=== PATIENT | female | born 1955 | race Caucasian/White ===

== ENCOUNTER 2018-08-22 08:50 | Day surgery (SDC) | payer OTHER ==
[~2018-08-22] VITALS: Ht 167.6 cm; Wt 96.1 kg
[~2018-08-22 08:50] MED LIST: DULO60; FISH OIL + D31 EACH; LEVSOD150; LO-DOSE ASPIRIN81 MG
[2018-08-22] MEDS ORDERED: BUPR75 (09:49)
== END 2018-08-22 11:14 | disposition home or self-care (01) ==
LOC: ORSCSDS 08:50
PROVIDERS: Internal Medicine Gastroenterology
PROC: 0DBH8ZX Excision of Cecum, Via Natural or Artificial Opening Endoscopic, Diagnostic (ICD-10-PCS; principal; 2018-08-22 10:15)
DX: Z12.11 Encounter for screening for malignant neoplasm of colon (principal); K63.5 Polyp of colon; K64.8 Other hemorrhoids; K57.30 Diverticulosis of large intestine without perforation or abscess without bleeding; E03.9 Hypothyroidism, unspecified; E78.5 Hyperlipidemia, unspecified; I10 Essential (primary) hypertension; F32.9 Major depressive disorder, single episode, unspecified; Z79.82 Long term (current) use of aspirin; Z79.899 Other long term (current) drug therapy
CPT/HCPCS: 88305; J2704; J7120

== ENCOUNTER 2022-10-08 10:28 | Day surgery (SDC) | payer OTHER ==
[~2022-10-08] VITALS: Ht 170.2 cm; Wt 98.1 kg
[~2022-10-08 10:28] MED LIST changes: +BUPR75
[2022-10-08 15:06] VITALS: BP 127/77
--- NOTE | 2022-10-08 15:57 | NUR ---
10/08/22 1557 Mike Matthew IV REMOVED INTACT. SITE WNL. PT REPORTED 5/10 PAIN UPON DISCHARGE BUT DESCRIBED PAIN TOLERABLE. PT DENIED NAUSEA.
== END 2022-10-08 15:45 | disposition home or self-care (01) ==
LOC: ORSCSDS 10:28
PROVIDERS: Podiatrist Foot & Ankle Surgery
PROC: 0SGJ04Z Fusion of Left Tarsal Joint with Internal Fixation Device, Open Approach (ICD-10-PCS; principal; 2022-10-08 12:30)
PROC: 0SGN04Z Fusion of Left Metatarsal-Phalangeal Joint with Internal Fixation Device, Open Approach (ICD-10-PCS; principal; 2022-10-08 12:30)
DX: M21.612 Bunion of left foot (principal); M19.072 Primary osteoarthritis, left ankle and foot; E03.9 Hypothyroidism, unspecified; I10 Essential (primary) hypertension; E78.00 Pure hypercholesterolemia, unspecified; Z79.899 Other long term (current) drug therapy
CPT/HCPCS: A9270; C1713; J0171; J0690; J2704; J2795; J3010; J7120

== ENCOUNTER 2023-05-24 07:12 | Day surgery (SDC) | payer OTHER ==
[~2023-05-24] VITALS: Ht 170.2 cm; Wt 88.6 kg
[~2023-05-24 07:12] MED LIST changes: +Aspir 8181 MG PO; -BUPR75; +BUPR75 PO; -DULO60; +DULO60 PO; +LEVOTHYROXINE150 MC9 PO; -LEVSOD150
--- NOTE | 2023-05-24 08:45 | NUR ---
05/24/23 0845 Iliana Burton ROPIVACAINE 0.5% 30 MLS MIXED & VERIFIED WITH EPI 0.15ML (1MG/ML), PER ORDER, TO MAKE ROPIVACAINE 0.5% 1:200,000 FOR INJECTION AT OPSITE BY DR PAREKH.
[2023-05-24 10:46] VITALS: BP 143/77
== END 2023-05-24 11:13 | disposition home or self-care (01) ==
LOC: ORSCSDS 07:12
PROVIDERS: Podiatrist Foot & Ankle Surgery
PROC: 0SGK04Z Fusion of Right Tarsometatarsal Joint with Internal Fixation Device, Open Approach (ICD-10-PCS; principal; 2023-05-24 08:30)
PROC: 0QSN04Z Reposition Right Metatarsal with Internal Fixation Device, Open Approach (ICD-10-PCS; principal; 2023-05-24 08:30)
DX: M21.611 Bunion of right foot (principal); E03.9 Hypothyroidism, unspecified; Z79.899 Other long term (current) drug therapy
CPT/HCPCS: A9270; C1713; J0171; J0690; J1100; J2250; J2371; J2405; J2704; J2795; J3010; J7120

== ENCOUNTER → 2024-05-25 | Outpatient (CLI) | payer OTHER ==
[~2024-05-25] MED LIST changes: +BUPR100ER PO; +VENL150ER PO
[2024-05-25 11:58] LABS: BASOPHILS ABSOLUTE AUTO 0.02 K/mm3 (0.00-0.23); BASOPHILS PERCENT AUTO 0 % (0-2); EOSINOPHILS PERCENT AUTO 0 % (0-6); Hematocrit 39.8 % (33.0-51.0); Hemoglobin 13.8 g/dL (11.5-16.0); IMMATURE GRAN ABSOLUTE AUTO 0.05 K/mm3 (0.00-0.10); IMMATURE GRAN PERCENT AUTO 1 % (0-1); LYMPHOCYTES ABSOLUTE AUTO 0.87 K/mm3 (0.84-5.20); LYMPHOCYTES PERCENT AUTO 10 % (21-46); MONOCYTES ABSOLUTE AUTO 0.33 K/mm3 (0.16-1.47); MONOCYTES PERCENT AUTO 4 % (4-13); Mean Corpuscular HGB 30.5 pg (26.0-34.0); Mean Corpuscular HGB Conc 34.7 g/dL (31.5-36.5); Mean Corpuscular Volume 88 fL (80-100); Mean Platelet Volume 9.1 fL (9.1-12.4); NEUTROPHILS ABSOLUTE AUTO 7.16 K/mm3 (1.96-9.15); NEUTROPHILS PERCENT AUTO 85 % (41-73); Platelet Count 180 K/mm3 (150-400); RDW Coefficient Variation 12.9 % (11.7-14.2); RDW Standard Deviation 41.7 fL (35.1-46.3); Red Blood Cell Count 4.52 M/mm3 (3.80-5.20); White Blood Cell Count 8.43 K/mm3 (4.00-11.30)
[2024-05-25 12:18] LABS: Albumin, Blood 3.2 g/dL (3.4-5.0); Albumin/Globulin Ratio 0.7 (0.8-1.8); Bilirubin, Total 0.5 mg/dL (0.1-1.0); Bun/Creatinine Ratio 13.6 (12.0-20.0); Calcium, Blood 9.2 mg/dL (8.5-10.1); Creatinine, Blood 1.1 mg/dL (0.40-1.00); Globulin, Blood 4.3 g/dL (2.2-4.0); Potassium, Blood 3.8 mmol/L (3.5-5.5); Thyroid Stimulating Hormone 2.861 uIU/mL (0.360-4.800); Total Protein, Blood 7.5 g/dL (6.4-8.2)
== END ==
LOC: LAB SHORT 11:54 → LAB 11:54
PROVIDERS: Family Medicine
DX: E03.9 Hypothyroidism, unspecified (principal); R46.89 Other symptoms and signs involving appearance and behavior; N39.0 Urinary tract infection, site not specified
CPT/HCPCS: 80053; 84443; 85025; 87086

== ENCOUNTER 2024-05-27 14:55 | Inpatient (IN) | payer OTHER ==
[~2024-05-27] VITALS: Ht 170.2 cm; Wt 92.5 kg
[~2024-05-27 14:55] MED LIST changes: -BUPR100ER PO; -VENL150ER PO
--- NOTE | 2024-05-27 15:19 | NUR ---
Pt. is in ED8 and getting attended to when she welcomes my visit. Pt. displays evidence of feeling quite week and ill and verbalizes that she has not been steady on her feet, which is unusual for her. Pt. had friends at bedside. Pt. verbalized gratitude for the spiritual care visit. This frontend engineer will return after the Pt. gets settled.
[2024-05-27] MEDS ORDERED: NS 1,000 ML IV SCH (15:20)
[2024-05-27 15:35] LABS: BASOPHILS ABSOLUTE AUTO 0.03 K/mm3 (0.00-0.23); BASOPHILS PERCENT AUTO 0 % (0-2); EOSINOPHILS PERCENT AUTO 0 % (0-6); Hematocrit 37.4 % (33.0-51.0); Hemoglobin 13.2 g/dL (11.5-16.0); IMMATURE GRAN ABSOLUTE AUTO 0.09 K/mm3 (0.00-0.10); IMMATURE GRAN PERCENT AUTO 1 % (0-1); LYMPHOCYTES ABSOLUTE AUTO 0.82 K/mm3 (0.84-5.20); LYMPHOCYTES PERCENT AUTO 10 % (21-46); MONOCYTES ABSOLUTE AUTO 0.67 K/mm3 (0.16-1.47); MONOCYTES PERCENT AUTO 8 % (4-13); Mean Corpuscular HGB 31.3 pg (26.0-34.0); Mean Corpuscular HGB Conc 35.3 g/dL (31.5-36.5); Mean Corpuscular Volume 89 fL (80-100); Mean Platelet Volume 9.6 fL (9.1-12.4); NEUTROPHILS PERCENT AUTO 81 % (41-73); Platelet Count 224 K/mm3 (150-400); RDW Coefficient Variation 13.2 % (11.7-14.2); Red Blood Cell Count 4.22 M/mm3 (3.80-5.20); White Blood Cell Count 8.31 K/mm3 (4.00-11.30)
[2024-05-27] MEDS ORDERED: CefTRIAXone Sodium 1,000 MG in NS 50 ML IV ONE (15:45)
[2024-05-27 15:52] LABS: Albumin, Blood 2.7 g/dL (3.4-5.0); Albumin/Globulin Ratio 0.6 (0.8-1.8); Bilirubin, Total 0.7 mg/dL (0.1-1.0); Bun/Creatinine Ratio 11.1 (12.0-20.0); Calcium, Blood 8.6 mg/dL (8.5-10.1); Creatinine, Blood 0.9 mg/dL (0.40-1.00); Globulin, Blood 4.2 g/dL (2.2-4.0); Potassium, Blood 3.6 mmol/L (3.5-5.5); Total Protein, Blood 6.9 g/dL (6.4-8.2)
[2024-05-27 16:28] LABS: Source, Urine Straight Cath
[2024-05-27 16:32] LABS: Blood, Urine 4+ (Neg); Glucose Qualitative, Urine Neg (Neg); Ketones, Urine 3+ (Neg); Leukocyte Esterase, Urine 1+ (Neg); Nitrite, Urine Neg (Neg); Protein, Urine 4+ (Neg); Urobilinogen, Urine 1+ (Normal)
[2024-05-27 16:45] LABS: Bilirubin, Urine 1+ (Neg)
[2024-05-27 16:46] LABS: Granular Casts 0-2 /lpf (0)
[2024-05-27 16:47] LABS: Amorphous Light (0-Heavy); Bacteria Few /hpf; Mucus Light (0-Heavy); Renal Epithelial Rare /hpf (0-Rare); Squamous Epithelial Cells Not Seen /hpf (Few)
[2024-05-27 16:48] LABS: Appearance, Urine Cloudy (Clear); Color, Urine Amber (P-Yellow)
--- NOTE | 2024-05-27 17:27 | NUR ---
Spiritual Care follow up. Pt. is in room. A friend is at bedside. Facilitated an update but Pt. presented to be weak and lethargic. Pt. verbalized an expectation that she would be staying overnight for one night. Considered matters of joe and ministry as this Pt. is known ot this chinese instructor from the community. Pt. requested that I update her anabaptism of her condition. Prayed with the Pt. Will remain available and will check on the Pt. in morning. Contacted the anabaptism spiritual care team.
[2024-05-27 18:17] LABS: CORONAVIRUS COVID-19 AG Negative (NEGATIVE); INFLUENZA A AG Negative (NEGATIVE); INFLUENZA B AG Negative (NEGATIVE)
[2024-05-27] MEDS ORDERED: FLU VACC TS2024-25(6MOS UP)/PF 45 MCG/0.5 ML SYRINGE IM SCH (19:40)
[2024-05-27] MEDS ORDERED: Azithromycin 250 MG Tab PO ONE (19:45)
[2024-05-27] MEDS ORDERED: Azithromycin 200 MG/5 ML SUSP 5ML UDC PO ONE (20:00)
[2024-05-27] MEDS ORDERED: VENL150ER PO (20:59)
[2024-05-27] MEDS ORDERED: BUPR100ER PO (20:59)
[2024-05-27] MEDS ORDERED: Lactobacil 2-S.Thermo-Bifido 1 1 Cap PO SCH (21:00)
[2024-05-27] MEDS ORDERED: Acetaminophen 500 MG Tab PO PRN (21:50)
[2024-05-27 22:20] VITALS: BP 130/73
[2024-05-28] MEDS ORDERED: Levothyroxine Sodium 0.15 MG Tab PO SCH (06:00)
[2024-05-28 06:06] VITALS: BP 120/64
[2024-05-28 06:38] LABS: BASOPHILS ABSOLUTE AUTO 0.01 K/mm3 (0.00-0.23); BASOPHILS PERCENT AUTO 0 % (0-2); EOSINOPHILS PERCENT AUTO 0 % (0-6); Hematocrit 36.8 % (33.0-51.0); Hemoglobin 12.9 g/dL (11.5-16.0); Mean Corpuscular HGB 31.1 pg (26.0-34.0); Mean Corpuscular HGB Conc 35.1 g/dL (31.5-36.5); Mean Corpuscular Volume 89 fL (80-100); Mean Platelet Volume 9.7 fL (9.1-12.4); Platelet Count 210 K/mm3 (150-400); RDW Coefficient Variation 13.4 % (11.7-14.2); RDW Standard Deviation 43.8 fL (35.1-46.3); Red Blood Cell Count 4.15 M/mm3 (3.80-5.20); White Blood Cell Count 8.96 K/mm3 (4.00-11.30)
[2024-05-28 06:39] LABS: IMMATURE GRAN ABSOLUTE AUTO 0.09 K/mm3 (0.00-0.10); IMMATURE GRAN PERCENT AUTO 1 % (0-1); LYMPHOCYTES ABSOLUTE AUTO 0.97 K/mm3 (0.84-5.20); LYMPHOCYTES PERCENT AUTO 11 % (21-46); MONOCYTES ABSOLUTE AUTO 0.75 K/mm3 (0.16-1.47); MONOCYTES PERCENT AUTO 8 % (4-13); NEUTROPHILS ABSOLUTE AUTO 7.14 K/mm3 (1.96-9.15); NEUTROPHILS PERCENT AUTO 80 % (41-73)
--- NOTE | 2024-05-28 07:00 | NUR ---
ADMITTED FROM ER ACCOMPANIED BY STAFF. MILLER ASSIST WITH SLIDER TO BED. PT IS LETHARGIC BUT RESPONDS TO QUESTIONS WITH STRONG ENCOURAGEMENT BEFORE SHE FALLS ASLEEP. ORIENTED X3. ATTEMPTED BSC, MILLER ASSSIST X2 WITH VERBAL QUES. FEBRILE, 500MG TYLENOL GIVEN PER MAR X2. #18 SHWETHA, REVA.
[2024-05-28 07:03] LABS: Albumin, Blood 2.4 g/dL (3.4-5.0); Albumin/Globulin Ratio 0.6 (0.8-1.8); Bilirubin, Total 0.5 mg/dL (0.1-1.0); Bun/Creatinine Ratio 13.7 (12.0-20.0); Calcium, Blood 8.2 mg/dL (8.5-10.1); Creatinine, Blood 0.8 mg/dL (0.40-1.00); Globulin, Blood 4.3 g/dL (2.2-4.0); Phosphorus, Blood 1.7 mg/dL (2.5-4.9); Potassium, Blood 3.6 mmol/L (3.5-5.5); Total Protein, Blood 6.7 g/dL (6.4-8.2)
[2024-05-28 08:42] VITALS: BP 91/57
[2024-05-28] MEDS ORDERED: Venlafaxine HCl 75 MG CapCR PO SCH (09:00)
[2024-05-28] MEDS ORDERED: Enoxaparin 40 MG/0.4 ML SYR SC SCH (09:00)
[2024-05-28] MEDS ORDERED: BuPROPion HCl 100 MG Tab PO SCH (09:00)
--- NOTE | 2024-05-28 11:31 | NUR ---
Pt. is awake in bed when she welcomes my visit. Pt. displays evidence of being tired, but the Pt. verbalized that she did not sleep much since [place] prior to her admission to the hospital. The Pt. is known to this office support from the community. 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 Pt. displayed evidence of being engaged and aware. Prayed for the Pt. pt. verblaized gratitude for the spiritual care visit. Will remain available to the Pt.
[2024-05-28 16:06] VITALS: BP 123/69
--- NOTE | 2024-05-28 17:10 | NUR ---
PATIENT A/O X4. PATIENT IS ABLE TO MOVE SELF IN BED HOWEVER IS WEAK, PATIENT HAS HAD FAMILY AND FRIEND IN AND OUT OF ROOM TODAY AND PATIENT IS TIRED FROM VISITATIONS. PATIENT WAS GIVEN TYLENOL FOR FEVER OF 100.6. PATIENT HAS A NON PRODUCUCTIVE COUGH AND HAS REQUIRED NO OXYGEN. PATIENT HAS NOT HAD ACUTE CHANGES THIS SHIFT AND HAS CALL LIGHT NEXT TO PATIENT. PATIENT HAS NOT GOT OUT OF BED AND WAS UNABLE TO BE EVALUATED BY PHYSICAL THERAPY DUE TO PATIENT BEING TO TIRED AND REQUEST FOR TOMORROW. PATIENT ABLE TO CALL FOR ANY ASSITANCE NEEDED. PATIENT DISHCARGE PLAN INCLUDE GOING HOME WITH FRIENDS ONCE MEDICALLY STABE.
--- NOTE | 2024-05-28 17:14 | NUR ---
SPiritual Care Follow Up Pt. is awake in bed with several visitors. Pt. displays evidence of being more exhausted than my earlier visit. Facilitated some updates regarding her day, and spent time helping mediate the conversation. Prayed with the pt. and hte group. One of the visitors (Jenifer) is listed as the Pts. decision maker. Met with the visitor group in the hallway after the visit, and then circled make ot the Pts. attending nurse Sheela to update her. This authorization nurse will return in the morning.
[2024-05-28] MEDS ORDERED: Azithromycin 250 MG Tab PO SCH (18:00)
[2024-05-28] MEDS ORDERED: CefTRIAXone Sodium 1,000 MG in NS 100 ML IV SCH (18:00)
[2024-05-28 20:27] VITALS: BP 114/61
[2024-05-29 02:43] VITALS: BP 118/71
[2024-05-29 07:50] VITALS: BP 111/65
--- NOTE | 2024-05-29 12:29 | NUR ---
1200, THIS RN PLACED PURE WICK CATHETER IN POSITION FOR PT. PT IS ABLE TO STAND WITH YARN COMBER. WHEN QUESTIONED, REPLIED THEY WERE WORRIED ABOUT POTENTIAL SKIN BREAKDOWN DUE TO INCONTINENCE. THIS RN HAS NOT OBSERVED ANY SKIN BREAKDOWN CURRENTLY. PT WAS REMINDED WHEN SHE HAS THE URGE TO URINATE, TO PRESS CALL LIGHT FOR RN AND INTERNAL CONTROLS SPECIALIST TO ASSIST TO THE COMMODE TO PREVENT MUSCLE ATROPHY. WILL CONTINUE TO ASSESS.
[2024-05-29 16:25] VITALS: BP 104/68
--- NOTE | 2024-05-29 16:58 | NUR ---
SHIFT SUMMARY PT AOX3/4, COOPERATIVE, ABLE TO MAKE NEEDS KNOWN. SPEND MOST OF SHIFT IN BED SLEEPING, VERY TIRED. DID WORK WITH BOX SEALING INSPECTOR TODAY. MD SAW PT AND PER MD REQUEST, PURE WICK CATHETER IN PLACE. PT ASKED TO USE COMMODE, MANAGER MORTGAGE AND RN ASSISTED PT TO COMMODE, SHE DID WELL TRANSFERRING. WHEN MANAGER MORTGAGE TRANSFERRED PT BACK TO BED, PT REQUESTED THE PURE WICK NOT BE PLACED, MD INFORMED. BED IN LOWEST POSITION, CALL LIGHT WITHIN REACH.
--- NOTE | 2024-05-29 17:23 | NUR ---
Pt. is awake in bed when this leather production worker visited after the Pt. had gotten her vitals checked by the CARPORT ERECTOR. Pt. displays evidenc of weakness, but also displays evidence of improvement from the previous day. Facilitated some dialogue about her daughter and friends. Pt. displayed evidence of engagement and awareness. Prayed with the Pt. Pt. verbalized gratitude for the spiritual care visit.
[2024-05-29 21:08] VITALS: BP 105/69
[2024-05-30 02:03] VITALS: BP 101/69
--- NOTE | 2024-05-30 04:01 | NUR ---
AAOX3, SLOW TO RESPOND TO QUESTIONS OR MOVEMENT. RA. USES BSC WITH WALKER. RECIEVING ROCEHIN FOR BILATERAL LL PNU. WORKING WITH PT FOR STRENGTHENING. PLAN IS DC HOME WHEN STRONGER.
[2024-05-30 06:27] LABS: Albumin, Blood 2.1 g/dL (3.4-5.0); Anion Gap 10 mmol/L (3-11); Blood Urea Nitrogen 11 mg/dL (8-24); Bun/Creatinine Ratio 19.3 (12.0-20.0); CO2, Blood 24 mmol/L (21-32); Calcium, Blood 8.2 mg/dL (8.5-10.1); Chloride, Blood 101 mmol/L (98-108); Creatinine, Blood 0.57 mg/dL (0.40-1.00); Glomerular Filtration Rate 97 (60-); Glucose, Blood 98 mg/dL (70-99); Phosphorus, Blood 2.3 mg/dL (2.5-4.9); Potassium, Blood 3.4 mmol/L (3.5-5.5); Sodium, Blood 132 mmol/L (136-145)
[2024-05-30 06:35] LABS: Hematocrit 34.4 % (33.0-51.0); Hemoglobin 11.8 g/dL (11.5-16.0); Mean Corpuscular HGB 30.4 pg (26.0-34.0); Mean Corpuscular HGB Conc 34.3 g/dL (31.5-36.5); Mean Corpuscular Volume 89 fL (80-100); Mean Platelet Volume 10.3 fL (9.1-12.4); Platelet Count 297 K/mm3 (150-400); RDW Coefficient Variation 13.9 % (11.7-14.2); RDW Standard Deviation 44.9 fL (35.1-46.3); Red Blood Cell Count 3.88 M/mm3 (3.80-5.20); White Blood Cell Count 10.62 K/mm3 (4.00-11.30)
[2024-05-30] MEDS ORDERED: Potassium Phosphate Dibasic 20 MM in Dextrose 5% 500 ML IV STA (07:08)
[2024-05-30 07:41] VITALS: BP 101/59
[2024-05-30 08:17] LABS: BAND PERCENT MAN 2 % (0-8); BASOPHILS PERCENT MAN 0 % (0-2); EOSINOPHILS PERCENT MAN 0 % (0-6); LYMPHOCYTES % ATYPICAL MANUAL 10 % (0-0); LYMPHOCYTES PERCENT MAN 23 % (21-46); MONOCYTES ABSOLUTE MAN 0.53 K/mm3 (0.16-1.47); MONOCYTES PERCENT MAN 5 % (4-13); NEUTROPHILS ABSOLUTE MAN 6.58 K/mm3 (1.96-9.15); SEG NEUTROPHILS PERCENT MAN 60 % (41-73); TOTAL CELLS COUNTED 100
[2024-05-30] MEDS ORDERED: NS 250 ML IV PRN (14:30)
[2024-05-30 14:44] VITALS: BP 102/55
--- NOTE | 2024-05-30 16:26 | NUR ---
SHIFT SUMMARY MS GARCIA IS MORE AWAKE THIS AFTERNOON WITH VISITORS AT HER BEDSIDE. SHE WAS VERY SLEEPY THIS MORNING, AROUSABLE. SHE IS SOMETIMES SLOW TO SPEAK, BUT HAS BEEN APPROPRIATE IN HER CONVERSATION AND ANSWERS TO QUESTIONS. THIS AFTERNOON SHE SAT UP AND ATE LUNCH, CONVERSING WITH VISITORS. SHE HAS DECLINED TO BRUSH HER TEETH OR GET UP TO THE CHAIR, BUT HAS BEEN UP TO THE BEDSIDE COMMODE WITH 1 PERSON ASSISTANCE. A NEW PIV THAT WAS PLACED THIS MORNING ON HER RFA INFILTRATED. SHE HAD ICE PACKS TO HER RIGHT ARM, SWELLING AND TENDERNESS HAS DECREASED, AREA IS SOFT TO THE TOUCH. WITH PT PERMISSION I SPOKE TO HER DAUGHTER EMILIA ON THE TELEPHONE. EMILIA SAID SHE LIVES IN [place] SO WILL NOT BE HERE, BUT THAT ONE OF THE VISITORS WHO WERE HERE TODAY MAY STAY WITH HER FOR A WHILE UPON DISCHARGE. PT ABLE TO TURN IN BED INDEPENDENTLY, NEEDING ASSISTANCE TO MOVE UP IN THE BED. BED LOW, CALL LIGHT IN REACH, BED ALARM ON.
[2024-05-30 20:43] VITALS: BP 104/55
[2024-05-31 03:50] VITALS: BP 110/71
[2024-05-31 05:13] LABS: Hemoglobin 11.9 g/dL (11.5-16.0); Mean Corpuscular HGB 30.7 pg (26.0-34.0); Mean Corpuscular Volume 88 fL (80-100); Mean Platelet Volume 9.3 fL (9.1-12.4); Platelet Count 371 K/mm3 (150-400); RDW Coefficient Variation 13.9 % (11.7-14.2); RDW Standard Deviation 44.7 fL (35.1-46.3); Red Blood Cell Count 3.88 M/mm3 (3.80-5.20); White Blood Cell Count 11.75 K/mm3 (4.00-11.30)
[2024-05-31 05:52] LABS: Albumin, Blood 2.1 g/dL (3.4-5.0); Anion Gap 10 mmol/L (3-11); Blood Urea Nitrogen 10 mg/dL (8-24); Bun/Creatinine Ratio 17.4 (12.0-20.0); CO2, Blood 24 mmol/L (21-32); Calcium, Blood 8.3 mg/dL (8.5-10.1); Chloride, Blood 103 mmol/L (98-108); Creatinine, Blood 0.58 mg/dL (0.40-1.00); Glomerular Filtration Rate 97 (60-); Glucose, Blood 116 mg/dL (70-99); Phosphorus, Blood 2.7 mg/dL (2.5-4.9); Potassium, Blood 3.5 mmol/L (3.5-5.5); Sodium, Blood 133 mmol/L (136-145)
[2024-05-31 06:03] LABS: BAND PERCENT MAN 1 % (0-8); BASOPHILS ABSOLUTE MAN 0.11 K/mm3 (0.00-0.23); BASOPHILS PERCENT MAN 1 % (0-2); EOSINOPHILS PERCENT MAN 0 % (0-6); LYMPHOCYTES % ATYPICAL MANUAL 7 % (0-0); LYMPHOCYTES ABSOLUTE MAN 3.99 K/mm3 (0.84-5.20); LYMPHOCYTES PERCENT MAN 27 % (21-46); MONOCYTES PERCENT MAN 6 % (4-13); NEUTROPHILS ABSOLUTE MAN 6.93 K/mm3 (1.96-9.15); SEG NEUTROPHILS PERCENT MAN 58 % (41-73); TOTAL CELLS COUNTED 100
--- NOTE | 2024-05-31 06:14 | NUR ---
SHIFT SUMMARY AT START OF SHIFT, PT SITTING UP IN BED, WATCHING TV. VITALS STABLE. AFTER 2100 MEDS PASSED, PT TURNED OFF TV AND LIGHT, AND WENT TO SLEEP. WILL CONTINUE TO MONITOR. 0410, PT UP TO COMMODE, VOIDED VERY LITTLE. BACK INTO BED AND RESTING. WILL CONTINUE TO MONITOR. PT CONTINUING TO SLEEP SOUNDLY.
[2024-05-31 07:29] VITALS: BP 116/75
[2024-05-31] MEDS ORDERED: Potassium Phosphate Dibasic 10 MM in Dextrose 5% 250 ML IV STA (12:44)
[2024-05-31 15:00] VITALS: BP 115/68
--- NOTE | 2024-05-31 16:03 | NUR ---
Shift Summary Ms Rogers is orientated, no confusion evident. She has a delay in verbal response and physical reaction, but all are appropriate. She was on 2L n/c oxygen at time of report this morning, Since then oxygen has been removed and she is saturating low 90s on room air with no c/o SOB. She has used the incentive spirometer with moderate technique. She has ambulated in the halls with gait belt, walker and verbal prompting/stand by assistance. She has sat up in the chair for meals. She does activity with prompting and encouragement. She has had several visitors today. Bed low, call light in reach.
[2024-05-31 19:46] VITALS: BP 119/72
--- NOTE | 2024-06-01 04:50 | NUR ---
SHIFT SUMMARY PATIENT IS ALERT AND ORIENTED BUT SLOW TO RESPOND. PATIENT HAS HAD NO ACUTE EVENTS THIS SHIFT. VITAL SIGNS REVIEWED. PATIENT IS PLEASENT AND COOPERATIVE WITH CARE. PATIENT HAS BEEN ON ROOM AIR SATTING MID 90S. PATIENT HAS BEEN RESTING MOST OF NIGHT. PATIENT HAS HAD NO COMPLAINTS OF PAIN, NAUSEA, SOB OR VOMITTING. BED IN LOCKED AND LOWEST POSITION. CALL LIGHT IN PLACE. WILL MONITOR UNTIL SHIFT CHANGE.
[2024-06-01 05:42] VITALS: BP 102/72
[2024-06-01 06:24] LABS: BASOPHILS ABSOLUTE AUTO 0.06 K/mm3 (0.00-0.23); BASOPHILS PERCENT AUTO 0 % (0-2); EOSINOPHILS PERCENT AUTO 2 % (0-6); Hematocrit 35.1 % (33.0-51.0); Hemoglobin 12.3 g/dL (11.5-16.0); IMMATURE GRAN ABSOLUTE AUTO 0.21 K/mm3 (0.00-0.10); IMMATURE GRAN PERCENT AUTO 2 % (0-1); LYMPHOCYTES ABSOLUTE AUTO 6.05 K/mm3 (0.84-5.20); LYMPHOCYTES PERCENT AUTO 45 % (21-46); MONOCYTES ABSOLUTE AUTO 0.88 K/mm3 (0.16-1.47); MONOCYTES PERCENT AUTO 7 % (4-13); Mean Corpuscular HGB 31.1 pg (26.0-34.0); Mean Corpuscular Volume 89 fL (80-100); NEUTROPHILS ABSOLUTE AUTO 6.09 K/mm3 (1.96-9.15); NEUTROPHILS PERCENT AUTO 45 % (41-73); Platelet Count 434 K/mm3 (150-400); Red Blood Cell Count 3.96 M/mm3 (3.80-5.20); White Blood Cell Count 13.49 K/mm3 (4.00-11.30)
[2024-06-01 06:46] LABS: Albumin, Blood 2.2 g/dL (3.4-5.0); Anion Gap 9 mmol/L (3-11); Blood Urea Nitrogen 10 mg/dL (8-24); Bun/Creatinine Ratio 15.9 (12.0-20.0); CO2, Blood 26 mmol/L (21-32); Calcium, Blood 8.6 mg/dL (8.5-10.1); Chloride, Blood 105 mmol/L (98-108); Creatinine, Blood 0.63 mg/dL (0.40-1.00); Glomerular Filtration Rate 95 (60-); Glucose, Blood 103 mg/dL (70-99); Phosphorus, Blood 2.9 mg/dL (2.5-4.9); Potassium, Blood 3.8 mmol/L (3.5-5.5); Sodium, Blood 136 mmol/L (136-145)
[2024-06-01 07:20] VITALS: BP 140/85
[2024-06-01 15:21] VITALS: BP 136/85
--- NOTE | 2024-06-01 17:59 | NUR ---
SUMMARY- PT A/O X4, SBA TO BATHROOM, USES CALL LIGHT, KNOWS LIMITS. AMBULATED IN THE HALLWAY WITH PHYSICAL THERAPY. PT'S RESP EVEN UNLABORED. ROOM AIR ALL DAY, SATS MID 90'S, NO DYSPNEA NOTED. LUNG SOUNDS CRACKLES L MID. ENC COUGH AND DEEP BREATH AND I/S. PT HAS MOIST PRODUCTIVE COUGH. TOLERATING FOOD AND FLUIDS. VOIDING WITHOUT DIFFICULTY. WILL REPORT TO THE NOC RN
[2024-06-01 20:11] VITALS: BP 114/75
[2024-06-02 05:55] VITALS: BP 119/83
--- NOTE | 2024-06-02 07:20 | NUR ---
SHIFT SUMMARY PT AWAKE AT START OF SHIFT, WATHCHING TV. AFTER 2100 MED PASS, PT WENT TO SLEEP, AND SLEPT FOR DURATION OF SHIFT. PT DENIES PAIN AT THIS TIME.
[2024-06-02 07:30] VITALS: BP 98/63
[2024-06-02 09:15] LABS: Hematocrit 38.8 % (33.0-51.0); Hemoglobin 13.1 g/dL (11.5-16.0); Mean Corpuscular HGB 30.8 pg (26.0-34.0); Mean Corpuscular HGB Conc 33.8 g/dL (31.5-36.5); Mean Corpuscular Volume 91 fL (80-100); Mean Platelet Volume 8.5 fL (9.1-12.4); Platelet Count 513 K/mm3 (150-400); RDW Coefficient Variation 14.5 % (11.7-14.2); RDW Standard Deviation 48.3 fL (35.1-46.3); Red Blood Cell Count 4.25 M/mm3 (3.80-5.20); White Blood Cell Count 13.16 K/mm3 (4.00-11.30)
[2024-06-02 09:40] LABS: BASOPHILS ABSOLUTE MAN 0.13 K/mm3 (0.00-0.23); BASOPHILS PERCENT MAN 1 % (0-2); EOSINOPHILS ABSOLUTE MAN 0.26 K/mm3 (0.00-0.68); EOSINOPHILS PERCENT MAN 2 % (0-6); LYMPHOCYTES % ATYPICAL MANUAL 7 % (0-0); LYMPHOCYTES ABSOLUTE MAN 6.18 K/mm3 (0.84-5.20); LYMPHOCYTES PERCENT MAN 40 % (21-46); METAMYELOCYTE ABSOLUTE MAN 0.26 K/mm3 (0.00-0.00); METAMYELOCYTE PERCENT MAN 2 % (0-0); MONOCYTES ABSOLUTE MAN 0.78 K/mm3 (0.16-1.47); MONOCYTES PERCENT MAN 6 % (4-13); NEUTROPHILS ABSOLUTE MAN 5.52 K/mm3 (1.96-9.15); SEG NEUTROPHILS PERCENT MAN 42 % (41-73); TOTAL CELLS COUNTED 100
[2024-06-02 09:42] LABS: Albumin, Blood 2.4 g/dL (3.4-5.0); Albumin/Globulin Ratio 0.5 (0.8-1.8); Bilirubin, Total 0.6 mg/dL (0.1-1.0); Bun/Creatinine Ratio 16.2 (12.0-20.0); Calcium, Blood 8.9 mg/dL (8.5-10.1); Creatinine, Blood 0.68 mg/dL (0.40-1.00); Globulin, Blood 4.6 g/dL (2.2-4.0); Magnesium, Blood 2.7 mg/dL (1.6-2.4)
--- NOTE | 2024-06-02 11:12 | NUR ---
Pt. is sitting up on the side of her bed getting her hair brushed out by her friend Shahida. Pt. displays evidence of improved awareness and engagement. facilitated a discussion about the Pts. weekend. The Pt. 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 Considered matters of joe and her potential discharge. Pt. displays evidence of being ready for D/C and yet is known to have a fully mobile baseline prior to this hospitalization. Prayed with the Pt. Pt. verbalized gratitude for the spiritual care visit. Will continue to be available to Pt. while she is admitted. Pt. requested this information security architect contact her yazidi. This information security architect did so via text.
[2024-06-02 12:32] VITALS: BP 118/75
[2024-06-02] MEDS ORDERED: N-Acetylcysteine 600 MG CAP PO SCH (15:13)
[2024-06-02 15:26] VITALS: BP 125/81
[2024-06-02] MEDS ORDERED: Cefepime HCl 2,000 MG in NS 100 ML IV SCH (16:00)
--- NOTE | 2024-06-02 18:41 | NUR ---
SUMMARY- PT A/O X4. INDEPENDANT IN THE ROOM, AMBULATES WITH WALKER. AMBULATED WHT PIERRE THIS PM WITH STAFF. TOLERATING FOOD AND FLUID. LLL PNEUMONIA, L POST LUNG FIELD, MID WITH CRACKLES. ENC I.S. AND STARTED FLUTTER. 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 HAD 2 V[address] CXR TODAY [address] RIDER DECIDED TO KEEP PT FOR ONE MORE DAY OF IMPROVEMENT, ENCOURAGING ACTIVITY AND I.S AND FLUTTER. WILL REPORT TO NOC RN
[2024-06-02 20:55] VITALS: BP 118/80
--- NOTE | 2024-06-03 04:08 | NUR ---
SHIFT SUMMARY PATIENT HAD NO ACUTE CHANGES. AXOX 4 AND INDEPENDENT IN ROOM. DENIES CHEST PAIN, SOB, AND N/V. VSS/AFEBRILE. PIV INTACT. IV ABX INFUSED. COOPERATIVE WITH CARE. CALL LIGHT IN REACH. BED IN LOWEST POSITION. WILL CONTINUE TO MONITOR UNTIL DAY SHIFT NURSE ASSUMES CARE.
[2024-06-03 05:36] VITALS: BP 142/83
[2024-06-03 07:44] VITALS: BP 131/80
[2024-06-03 09:33] LABS: BASOPHILS ABSOLUTE AUTO 0.04 K/mm3 (0.00-0.23); BASOPHILS PERCENT AUTO 0 % (0-2); EOSINOPHILS PERCENT AUTO 2 % (0-6); Hemoglobin 13.2 g/dL (11.5-16.0); IMMATURE GRAN ABSOLUTE AUTO 0.19 K/mm3 (0.00-0.10); IMMATURE GRAN PERCENT AUTO 2 % (0-1); LYMPHOCYTES ABSOLUTE AUTO 4.28 K/mm3 (0.84-5.20); LYMPHOCYTES PERCENT AUTO 40 % (21-46); MONOCYTES ABSOLUTE AUTO 0.68 K/mm3 (0.16-1.47); MONOCYTES PERCENT AUTO 6 % (4-13); Mean Corpuscular HGB 31.3 pg (26.0-34.0); Mean Corpuscular HGB Conc 33.8 g/dL (31.5-36.5); Mean Corpuscular Volume 92 fL (80-100); Mean Platelet Volume 8.5 fL (9.1-12.4); NEUTROPHILS ABSOLUTE AUTO 5.23 K/mm3 (1.96-9.15); NEUTROPHILS PERCENT AUTO 49 % (41-73); Platelet Count 494 K/mm3 (150-400); RDW Coefficient Variation 14.4 % (11.7-14.2); RDW Standard Deviation 48.7 fL (35.1-46.3); Red Blood Cell Count 4.22 M/mm3 (3.80-5.20); White Blood Cell Count 10.62 K/mm3 (4.00-11.30)
[2024-06-03 10:05] LABS: Albumin, Blood 2.4 g/dL (3.4-5.0); Albumin/Globulin Ratio 0.5 (0.8-1.8); Bilirubin, Total 0.6 mg/dL (0.1-1.0); Bun/Creatinine Ratio 17.5 (12.0-20.0); Creatinine, Blood 0.68 mg/dL (0.40-1.00); Globulin, Blood 4.7 g/dL (2.2-4.0); Potassium, Blood 4.3 mmol/L (3.5-5.5); Total Protein, Blood 7.1 g/dL (6.4-8.2)
[2024-06-03] MEDS ORDERED: Vancomycin HCL 2,000 MG in NS 500 ML IV SCH (10:30)
[2024-06-03] MEDS ORDERED: Piperacillin/Tazobactam Sod 3.375 GM in NS 100 ML IV SCH (11:30)
[2024-06-03 15:03] VITALS: BP 118/78
--- NOTE | 2024-06-03 18:29 | NUR ---
SHIFT SUMMARY PATIENT A/OX4, ABLE TO MAKE NEEDS KNOWN. PLEASANT AND COOPERATIVE WITH CARE. INDEPENDENT IN ROOM. CT SCAN OBTAINED THIS MORNING. PULMONOLOGY CONSULTED AND CAME TO BEDSIDE TO ASSESS PATIENT. VANCOMYACIN STARTED PER PULMONOLOGY. PATIENT INFORMED SHE NEEDS SPUTUM SAMPLE, HAS NOT PRODUCE SPUTUM SINCE ORDER RECIEVED. PATIENT WITH MULTIPLE VISITORS THIS SHIFT. PRECISION OPTICAL GOODS WORKER CAME TO BEDSIDE TO VISIT WITH PATIENT WELL. IV ABX ADMINISTERED PER JUL. NO OTHER CONCERNS AT THIS TIME.
--- NOTE | 2024-06-03 18:39 | NUR ---
Pt. is awake in bed when she welcomes my visit. Pts. friend Shahida is present at bedside. Facilitate an update from her doctors and the Pt. verbalized encouragement. Pt. is known to this medical office technologist from the community. Pt. displays a countenance much more consistant to her baseline during this visit. Prayed with the Pt. Pt. verbalized gratitude for the spiritual care visit and welcomed this medical office technologist to return.
[2024-06-03 19:56] VITALS: BP 110/71
--- NOTE | 2024-06-04 04:35 | NUR ---
NOC SUMMARY- NO NEW ISSUES. PT HAS BEEN SLEEPING SOUNDLY THROUGHOUT SHIFT. PT HAS BEEN UP TO RESTROOM TO VOID WITHOUT SOB. PT CURRENTLY SLEEPING IN NO DISTRESS. PT REMAINS ON RA. CALL LIGHT IN REACH.
[2024-06-04 05:02] VITALS: BP 119/71
[2024-06-04 06:06] LABS: BASOPHILS ABSOLUTE AUTO 0.05 K/mm3 (0.00-0.23); BASOPHILS PERCENT AUTO 1 % (0-2); EOSINOPHILS ABSOLUTE AUTO 0.23 K/mm3 (0.00-0.68); EOSINOPHILS PERCENT AUTO 3 % (0-6); Hematocrit 37.8 % (33.0-51.0); Hemoglobin 12.4 g/dL (11.5-16.0); IMMATURE GRAN ABSOLUTE AUTO 0.13 K/mm3 (0.00-0.10); IMMATURE GRAN PERCENT AUTO 1 % (0-1); LYMPHOCYTES ABSOLUTE AUTO 3.86 K/mm3 (0.84-5.20); LYMPHOCYTES PERCENT AUTO 42 % (21-46); MONOCYTES ABSOLUTE AUTO 0.74 K/mm3 (0.16-1.47); MONOCYTES PERCENT AUTO 8 % (4-13); Mean Corpuscular HGB 30.7 pg (26.0-34.0); Mean Corpuscular HGB Conc 32.8 g/dL (31.5-36.5); Mean Corpuscular Volume 94 fL (80-100); Mean Platelet Volume 9.1 fL (9.1-12.4); NEUTROPHILS ABSOLUTE AUTO 4.13 K/mm3 (1.96-9.15); NEUTROPHILS PERCENT AUTO 45 % (41-73); Platelet Count 457 K/mm3 (150-400); RDW Coefficient Variation 14.5 % (11.7-14.2); RDW Standard Deviation 49.1 fL (35.1-46.3); Red Blood Cell Count 4.04 M/mm3 (3.80-5.20); White Blood Cell Count 9.14 K/mm3 (4.00-11.30)
[2024-06-04 06:45] LABS: Albumin, Blood 2.4 g/dL (3.4-5.0); Albumin/Globulin Ratio 0.6 (0.8-1.8); Bilirubin, Total 0.5 mg/dL (0.1-1.0); Bun/Creatinine Ratio 17.8 (12.0-20.0); Calcium, Blood 8.6 mg/dL (8.5-10.1); Creatinine, Blood 0.84 mg/dL (0.40-1.00); Globulin, Blood 4.2 g/dL (2.2-4.0); Potassium, Blood 4.6 mmol/L (3.5-5.5); Total Protein, Blood 6.6 g/dL (6.4-8.2)
[2024-06-04 07:20] VITALS: BP 127/87
[2024-06-04] MEDS ORDERED: Arginine/Glutamine/Calcium Hmb 1 Packet PO SCH (09:30)
[2024-06-04] MEDS ORDERED: Protein Supplement 30 ML UD PO SCH (09:30)
[2024-06-04] MEDS ORDERED: Vancomycin HCL 1,750 MG in NS 500 ML IV SCH (11:00)
--- NOTE | 2024-06-04 12:55 | NUR ---
Pt. is awake in bed and welcomes my visit. Faciliated a lengthy life and progress review. Pt. verbalized an expectation that she would be discharge later today. Listen with excitement for the Pt. who verbalizes that she feels ready. Pt. anckowledges that her joe and the prayers of others have sustained her. Prayed with the Pt. Pt. verbalized gratitude for the spiritual care visits.
[2024-06-04] MEDS ORDERED: AMOCLA875 PO (14:13)
[2024-06-04] MEDS ORDERED: VISBIOME 112.51 EACH PO (14:13)
[2024-06-04] MEDS ORDERED: ACET500 PO (14:13)
--- NOTE | 2024-06-04 14:50 | NUR ---
DISCHARGE NOTE PATIENT A/OX4, ABLE TO MAKE NEEDS KNOWN. PLEASANT AND COOP[ERATIVE WITH CARE. PATIENT EDUCATION PROVIDED REGARDING DISCHARGE INSTRUCTIONS, NEW MEDICATIONS, HOSPITAL FOLLOW UP APPOINTMENTS, AND FOLLOW UP CT SCAN. PATIENT AGREEABLE TO PLAN. MEDICATION LIST FAXED TO [facility] PER PATIENT REQUEST. IV REMOVED PRIOR TO DISCHARGE. PATIENT'S FRIEND, BLANE, PRESENT DURING EDUCATION. PATIENT ASSISTED TO FRIEND'S VEHICLE VIA WHEELCHAIR BY [facility] STAFF.
== END 2024-06-04 14:54 | disposition home or self-care (01) | DRG 177 ==
LOC: ER 14:55 → MEDS 19:38 → ERHOLD 19:38 → MEDS 22:01
PROVIDERS: Emergency Medicine; Family Medicine; ADMIT Family Medicine
DX: J85.0 Gangrene and necrosis of lung (principal); G92.8 Other toxic encephalopathy; E87.1 Hypo-osmolality and hyponatremia; J90 Pleural effusion, not elsewhere classified; N39.0 Urinary tract infection, site not specified; Z68.30 Body mass index [BMI] 30.0-30.9, adult; E78.5 Hyperlipidemia, unspecified; E03.9 Hypothyroidism, unspecified; F32.A Depression, unspecified; E66.9 Obesity, unspecified; F41.9 Anxiety disorder, unspecified; Z88.8 Allergy status to other drugs, medicaments and biological substances; Z79.890 Hormone replacement therapy
CPT/HCPCS: 36415; 71045; 71046; 71260; 80053; 80069; 81001; 83605; 83735; 84100; 84145; 85025; 87040; 87086; 87428-QW; 93005; 93010; 96365; 96366; 97110; 97116; 97162; 97530; 99285-25; A9270; J0692; J0696; J1650; J2543; J3370; J7030; J7040; J7050; J7060; P9612; Q9967